=== PATIENT | female | born 2000 | race African-American/Black ===

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

== ENCOUNTER 2019-02-03 15:02 | Observation (INO) | payer BC ==
[2019-02-03 16:29] LABS: APPEARANCE,URINE SLIGHTLY-CLOUDY; BILIRUBIN,URINE NEGATIVE (NEGATIVE); COLOR,URINE YELLOW; GLUCOSE, URINE NEGATIVE (NEGATIVE); KETONES,URINE TRACE mg/dL (NEGATIVE); LEUKOCYTE ESTERASE,URINE TRACE (NEGATIVE); NITRITE,URINE NEGATIVE (NEGATIVE); PROTEIN,URINE 30 mg/dL (NEGATIVE); URINE SPECIFIC GRAVITY 1.025; UROBILINOGEN,URINE NEGATIVE mg/dL (<2.0)
[2019-02-03] MEDS ORDERED: OXYCODONE-ACETAMINOPHEN 5-325 MG TABLET PO ONE (16:32)
[2019-02-03] MEDS ORDERED: ONDANSETRON 4 MG TAB.RAPDIS PO ONE (16:32)
--- NOTE | 2019-02-03 16:43 | ER Document Report ---
ED General - General Chief Complaint: Pelvic Pain Stated Complaint: SIDE PAIN, BACK PAIN Time Seen by Provider: 02/03/19 16:12 Primary Care Provider: HAZEL RAMÍREZ MD [Primary Care Provider] - Follow up as needed Mode of Arrival: Ambulatory Information source: Patient TRAVEL OUTSIDE OF THE [place] IN LAST 30 DAYS: No - HPI Patient complains to provider of: Left flank, low back, pelvis pain Onset: Just prior to arrival Onset/Duration: Sudden Quality of pain: Sharp Severity: Severe Pain Level: 5 Associated symptoms: denies: Chills, Diarrhea, Fever, Nausea, Vomiting Exacerbated by: Denies Relieved by: Denies Similar symptoms previously: No Recently seen / treated by doctor: No Notes: 18-year-old female coming in today with chief complaint sudden onset left low back pain, left flank pain, left pelvic pain that started suddenly at work prior to arrival. No fevers or chills. No nausea vomiting or diarrhea. Pinkish vaginal discharge. States last menstrual period 1 to 1-1/2 weeks ago. - Related Data Allergies/Adverse Reactions: No Known Allergies Allergy (Verified 06/14/17 06:42) Past Medical History - General Information source: Patient Last Menstrual Period: 1-1.5 wks ago - Social History Smoking Status: Current Every Day Smoker Lives with: Spouse/Significant other Family History: Reviewed & Not Pertinent Renal/ Medical History: Denies: Hx Peritoneal Dialysis - Immunizations Immunizations up to date: Yes Hx Diphtheria, Pertussis, Tetanus Vaccination: Yes Review of Systems - Review of Systems Notes: Constitutional: No fevers. No chills. EENT: No eye redness. No eye pain. No ear pain. No sore throat. Cardiovascular: No chest pain. No palpitations. Respiratory: No cough. No shortness of breath. No respiratory distress. Gastrointestinal: No abdominal pain. No nausea, vomiting, or diarrhea. Genitourinary: Positive pelvic pain Musculoskeletal: Atraumatic. No swelling. No deformities. Skin: No rash or lesions. Lymphatic: No swollen lymph nodes. Neurologic: No headache. No syncope. Psychiatric: No suicidal or homicidal ideation. Physical Exam - Vital signs Vitals: Temp Pulse Resp BP Pulse Ox 98.3 F 79 16 134/84 H 100 02/03/19 15:43 02/03/19 15:43 02/03/19 15:43 02/03/19 15:43 02/03/19 15:43 - Notes Notes: General: Well-developed, well-nourished. In no acute distress. Non-toxic appearing. Cardiac: Well-perfused. Regular rate and rhythm. No murmurs, rubs, or gallops. Pulmonary: No respiratory distress. No cyanosis. Bilateral lung fiels are clear to auscultation. Abdominal: Positive suprapubic tenderness to palpation HEENT: Head is atraumatic. Conjunctivae not reddened. No tearing. PERRL. EOMI. Orbits atraumatic. No periorbital swelling or erythema. Oropharynx is without erythema, swelling, or exudates. Neck: Supple. No adenopathy. No meningismus. Dermatologic: Warm with good turgor. No rash. Atraumatic. Chest: Atraumatic. No chest wall tenderness to palpation. Musculoskeletal: Moves all extremities well. No range of motion deficits. no muscular or joint tenderness. No paraspinal muscle tenderness. no midline spinal tenderness or step-off. Genitourinary: Chaperoned by RN. Genitalia normal. Speculum exam reveals a closed cervix. Small amount of blood in the vault. No active red blood hemorrhage. Atraumatic appearance. Cultures obtained. No adnexal tenderness on bimanual. No cervical motion tenderness. Neurologic: No gross neurologic deficits. Psychiatric: Normal mood. Course - Re-evaluation Re-evalutation: 02/03/19 16:49 Patient is unaware that she is . She will need RhoGam work-up, will need pelvic ultrasound to rule out ectopic, will need quantitative hCG and basic lab work and urinalysis. 02/03/19 20:04 Patient's hCG is a little over 2500. Her ultrasound does not show an intrauterine thus far. There is a questionable suspicious area in the left adnexa. I discussed these findings with Dr. Bolaños who is on-call for obstetrics. She will review the scan and will call me back to see if she believes that this is a true ectopic or not. 02/03/19 20:48 Dr. Bolaños reviewed the images from the ultrasound and see with certainty identified a sac within the left adnexa thereby confirming her suspicions that this is a left sided ectopic . At the moment that we were talking, Dr. Bolaños was headed for an emergency . She did not feel that the patient was safe to go home. She requested that we keep the patient in the department until she can come and evaluate her after she completes her emergency surgery to determine what type of treatment she wants to offer the patient 02/03/19 22:[address] Bolaños after she was able to evaluate the patient. She agreed to admit the patient for observation to watch and make absolutely sure this was ectopic. She did not want to do anything to harm a viable . Apparentl y she will be putting in admission orders shortly. 02/03/19 22:42 - Vital Signs Vital signs: Temp Pulse Resp BP Pulse Ox 98.8 F 78 18 133/78 H 100 02/03/19 20:38 02/03/19 20:38 02/03/19 20:38 02/03/19 20:38 02/03/19 20:38 - Laboratory Result Diagrams: 02/03/19 16:50 02/03/19 16:50 Laboratory results interpreted by me: 02/03/19 02/03/19 02/03/19 16:05 16:50 19:25 Total Protein 8.3 H Beta HCG, Quant 2583.20 H Urine Protein 30 H Urine Ketones TRACE H Urine Blood MODERATE H Ur Leukocyte Esterase TRACE H Urine HCG, Qual POSITIVE H Chlamydia DNA (PCR) DETECTED H Discharge - Discharge Clinical Impression: Ectopic Qualifiers: Location of ectopic : unspecified location Intrauterine status: without intrauterine Qualified Code(s): O00.90 - Unspecified ectopic without intrauterine Condition: Stable Disposition: ADMITTED OBSERVATION Admitting Provider: [facility] Unit Admitted: Labor and Delivery Referrals: HAZEL RAMÍREZ MD [Primary Care Provider] - Follow up as needed
[2019-02-03 17:09] LABS: ABSOLUTE NEUT (AUTO) 6.8 10^3/uL (1.7-8.2); BASOPHILS % (AUTO) 0.4 % (0-2); SEGMENTED NEUTROPHILS % (AUTO) 73.5 % (42-78); TOTAL CELLS COUNTED % (AUTO) 100 %
[2019-02-03 17:16] LABS: ABSOLUTE LYMPHOCYTES (AUTO) 1.9 10^3/uL (0.5-4.7); ABSOLUTE MONOCYTES (AUTO) 0.5 10^3/uL (0.1-1.4); EOSINOPHILS % (AUTO) 0.5 % (0-6); HEMATOCRIT 41.2 % (36.0-47.0); HEMOGLOBIN 13.7 g/dL (12.0-15.5); LYMPHOCYTES % (AUTO) 20.3 % (13-45); MEAN CORPUSCULAR HEMOGLOBIN 31.6 pg (27.0-33.4); MEAN CORPUSCULAR HGB CONC 33.3 g/dL (32.0-36.0); MEAN CORPUSCULAR VOLUME 95 fl (80-97); MONOCYTES % (AUTO) 5.3 % (3-13); PLATELET COUNT 317 10^3/uL (150-450); RED BLOOD COUNT 4.34 10^6/uL (3.72-5.28); RED CELL DISTRIBUTION WIDTH 13.2 % (11.5-14.0); WHITE BLOOD COUNT 9.3 10^3/uL (4.0-10.5)
[2019-02-03 17:20] LABS: ALANINE AMINOTRANSFERASE 28 U/L (9-52); ALKALINE PHOSPHATASE 68 U/L (38-126); ANION GAP 9 (5-19); ASPARTATE AMINO TRANSFERASE 25 U/L (14-36); BILIRUBIN,DIRECT 0.2 mg/dL (0.0-0.4); BILIRUBIN,TOTAL 0.9 mg/dL (0.2-1.3); BLOOD UREA NITROGEN 9 mg/dL (7-20); CARBON DIOXIDE 30 mmol/L (22-30); CHLORIDE 101 mmol/L (98-107); GLUCOSE 79 mg/dL (75-110); POTASSIUM 3.9 mmol/L (3.6-5.0); SODIUM 139.7 mmol/L (137-145); TOTAL PROTEIN 8.3 g/dL (6.3-8.2)
--- NOTE | 2019-02-03 18:28 | RADIOLOGY REPORT (SQ) ---
EXAM DESCRIPTION: U/S OB TRANSVAG W/DOPPLER COMPLETED DATE/TIME: 02/03/2019 5:42 pm REASON FOR STUDY: flank, suprapubic, pelvic pain +hcg COMPARISON: None. TECHNIQUE: Transvaginal static and realtime grayscale images acquired of the pelvis. Additional cole cted spectral and color Doppler images recorded. All images stored on PACs. CLINICAL AGE: None stated BHCG: Not available. LIMITATIONS: None. FINDINGS: UTERUS: No visualized intrauterine . RIGHT ADNEXA: Normal ovary with normal vascular flow. No adnexal free fluid. No adnexal masses. LEFT ADNEXA: Normal ovary with normal vascular flow. No adnexal free fluid. 1.21 cm hyperechoic left adnexal lesion with central hypoechoic area. Peripheral vascular flow. FREE FLUID: Yes OTHER: No other significant finding. IMPRESSION: NO VISUALIZED INTRA- OR EXTRAUTERINE . bHCG LEVEL NOT AVAILABLE FOR CORRELATION WITH US FINDINGS. ECTOPIC CANNOT BE EXCLUDED. Possible ectopic in the left adnexum. FOLLOW-UP ULTRASOUND AND SERIAL BHCG LEVELS STRONGLY RECOMMENDED TO ACCURATELY ASSESS STATU S. TECHNICAL DOCUMENTATION: JOB ID: [id number] [employer]- All Rights Reserved Reading location - IP/workstation name: [email or web address]
[2019-02-03 20:09] LABS: T.VAGINALIS (WET MOUNT) NO TRICHOMONAS SEEN; WBCS (WET MOUNT) 1+ WBCS SEEN; YEAST (WET MOUNT) NO YEAST SEEN
[2019-02-03 20:10] LABS: BACTERIA (WET MOUNT) 3+ BACTERIA SEEN; RBCS (WET MOUNT) 4+ RBCS SEEN
[2019-02-03 22:09] LABS: CHLAM PCR DETECTED (NOT DETECT)
--- NOTE | 2019-02-03 23:33 | PDOC H&P ---
History of Present Illness Admission Date/PCP: 02/03/19 22:54 HAZEL RAMÍREZ MD Patient complains of: left adnexal pain, vaginal spotting History of Present Illness: ANTONIO COE is a 18 year old female at 2+1ega by known LMP 01/19/2019 that was normal for her. Prior menses was 12/24/2018. She reports this am was having severe pain and came in for evaluation - was 10/10 in left adnexa and lower pelvis. Now 3/10 pain. She did not known she was and reports that she is not a smoker and denies prior STD history. Past Medical History LMP: 01/19/2019 Menses: normal Gynecological Infection: No Past Surgical History Past Surgical History: Reports: Other - cyst on back removed Social History Information Source: Patient Lives with: Spouse/Significant other Smoking Status: Current Every Day Smoker Hx Recreational Drug Use: No Drugs: None Hx Prescription Drug Abuse: No Family History Family History: Reviewed & Not Pertinent Parental Family History Reviewed: No Children Family History Reviewed: NA Sibling(s) Family History Reviewed.: NA Medication/Allergy Home Medications: Cetirizine HCl [Zyrtec] 1 tab PO DAILY 06/14/17 Ciprofloxacin HCl [Cipro 500 mg Tablet] 500 mg PO BID #14 tablet 06/14/17 Metronidazole [Flagyl 500 mg Tablet] 500 mg PO Q6H #28 tablet 06/14/17 Allergies/Adverse Reactions: No Known Allergies Allergy (Verified 06/14/17 06:42) Physical Exam - Physical Exam Vital Signs: Temp Pulse Resp BP Pulse Ox 98.8 F 78 18 133/78 H 100 02/03/19 20:38 02/03/19 20:38 02/03/19 20:38 02/03/19 20:38 02/03/19 20:38 Intake & Output 02/02/19 02/03/19 02/04/19 06:59 06:59 06:59 Weight 62.5 kg General appearance: PRESENT: no acute distress, well-developed, well-nourished Respiratory exam: PRESENT: clear to auscultation yousif, symmetrical, unlabored Cardiovascular exam: PRESENT: RRR. ABSENT: diastolic murmur, rubs, systolic murmur Pulses: PRESENT: normal dorsalis pedis pul, +2 pedal pulses bilateral GI/Abdominal exam: PRESENT: normal bowel sounds, soft, tenderness - mildly ttp in lower pelvis, no rebound, no guarding, no rovsigs, no peritoneal signs. ABSENT: distended, guarding, mass, organolmegaly, rebound Rectal exam: PRESENT: deferred Extremities exam: PRESENT: full ROM. ABSENT: calf tenderness, clubbing, pedal edema Musculoskeletal exam: PRESENT: ambulatory Neurological exam: PRESENT: alert, awake, oriented to person, oriented to place, oriented to time, oriented to situation, CN II-XII grossly intact. ABSENT: motor sensory deficit Psychiatric exam: PRESENT: appropriate affect, normal mood. ABSENT: homicidal ideation, suicidal ideation Skin exam: PRESENT: dry, intact, warm. ABSENT: cyanosis, rash Result Laboratory Results: 02/03/19 16:50 02/03/19 16:50 02/03/19 02/03/19 02/03/19 16:05 16:50 16:50 WBC 9.3 RBC 4.34 Hgb 13.7 Hct 41.2 MCV 95 MCH 31.6 MCHC 33.3 RDW 13.2 Plt Count 317 Seg Neutrophils % 73.5 Lymphocytes % 20.3 Monocytes % 5.3 Eosinophils % 0.5 Basophils % 0.4 Absolute Neutrophils 6.8 Absolute Lymphocytes 1.9 Absolute Monocytes 0.5 Absolute Eosinophils 0.0 Absolute Basophils 0.0 Sodium 139.7 Potassium 3.9 Chloride 101 Carbon Dioxide 30 Anion Gap 9 BUN 9 Creatinine 0.66 Est GFR ( Amer) > 60 Est GFR (Non-Af Amer) > 60 Glucose 79 Calcium 10.0 Total Bilirubin 0.9 AST 25 ALT 28 Alkaline Phosphatase 68 Total Protein 8.3 H Albumin 5.0 Urine Color YELLOW Urine Appearance SLIGHTLY-CLOUDY Urine pH 6.0 Ur Specific [place] 1.025 Urine Protein 30 H Urine Glucose (UA) NEGATIVE Urine Ketones TRACE H Urine Blood MODERATE H Urine Nitrite NEGATIVE Ur Leukocyte Esterase TRACE H Urine WBC (Auto) 14 Urine RBC (Auto) 4 Blood Type 02/03/19 17:00 WBC RBC Hgb Hct MCV MCH MCHC RDW Plt Count Seg Neutrophils % Lymphocytes % Monocytes % Eosinophils % Basophils % Absolute Neutrophils Absolute Lymphocytes Absolute Monocytes Absolute Eosinophils Absolute Basophils Sodium Potassium Chloride Carbon Dioxide Anion Gap BUN Creatinine Est GFR ( Amer) Est GFR (Non-Af Amer) Glucose Calcium Total Bilirubin AST ALT Alkaline Phosphatase Total Protein Albumin Urine Color Urine Appearance Urine pH Ur Specific [place] Urine Protein Urine Glucose (UA) Urine Ketones Urine Blood Urine Nitrite Ur Leukocyte Esterase Urine WBC (Auto) Urine RBC (Auto) Blood Type O POSITIVE Impressions: Transvaginal US 02/03/19 16:46 IMPRESSION: NO VISUALIZED INTRA- OR EXTRAUTERINE . bHCG LEVEL NOT AVAILABLE FOR CORRELATION WITH US FINDINGS. ECTOPIC CANNOT BE EXCLUDED. Possible ectopic in the left adnexum. FOLLOW-UP ULTRASOUND AND SERIAL BHCG LEVELS STRONGLY RECOMMENDED TO ACCURATELY ASSESS STATUS. Status: Image reviewed by me Assessment & Plan - Diagnosis (1) of unknown anatomic location Is this a current diagnosis for this admission?: Yes Plan: Patient with benign abdominal exam at this time. VS and hemodynamically stable Labs and Ultrasound reviewed. BHCG 2583 per patients LMP would be 2+1ega and this is desired if intrauterine Hb/Hct wnl 13.7/41.2 Ultrasound reviewed by myself and concern for GS and possible YS and ectopic pre gnancy in left adnexa and radiologist also contacted who read US as suspected ectopic . Reviewed options with patient: surgery, MTX, observation as long as she is hemodynamically stable and repeat labs and US tomorrow and possibly again repeat labs on Friday. GC/CT requested in ER. (2) Chlamydia infection affecting Qualifiers: Trimester: first trimester Qualified Code(s): O98.811 - Other maternal infectious and parasitic diseases complicating , first trimester; A74.9 - Chlamydial infection, unspecified Is this a current diagnosis for this admission?: Yes Plan: Azithromycin ordered. Patient informed and reviewed need to have partner treated. No unprotected intercourse until 4 weeks with good CIRO. Chlamydia dx could be a component of pain that patient is experiencing and certainly could contribute to cause of ectopic if that is final diagnosis. Will also treat for PID: Mefoxitin 2g Q 6 and Doxy 100mg Q12 - Time Time Spent: 30 to 50 Minutes Critical Time spent with patient: Less than 15 minutes Medications reviewed and adjusted accordingly: Yes Anticipated discharge: Home Within: within 48 hours Disposition: to floor from ER - Inpatient Certification Based on my medical assessment, after consideration of the patient's comor bidities, presenting symptoms, or acuity I expect that the services needed warrant INPATIENT care.: Yes I certify that my determination is in accordance with my understanding of Medicare's requirements for reasonable and necessary INPATIENT services [42 CFR 412.3e].: Yes Medical Necessity: Need Close Monitoring Due to Risk of Patient Decompensation, Need for Pain Control
[2019-02-04] MEDS ORDERED: DOXYCYCLINE HYCLATE INJ 100 MG VIAL IV PRN (00:15)
[2019-02-04] MEDS ORDERED: CEFOXITIN INJ 1 GM VIAL IV PRN (00:15)
[2019-02-04] MEDS ORDERED: AZITHROMYCIN 1 GM SUSP PACKET PO ONE (00:15)
[2019-02-04] MEDS ORDERED: CEFOXITIN SODIUM 2 GM in DEXTROSE 5%-WATER 100 ML IV ONE (00:30)
[2019-02-04] MEDS ORDERED: CEFOXITIN INJ 1 GM VIAL ONE ×2 (00:46→01:08)
[2019-02-04] MEDS ORDERED: DOXYCYCLINE HYCLATE INJ 100 MG VIAL ONE (00:47)
[2019-02-04] MEDS ORDERED: AZITHROMYCIN 1 GM SUSP PACKET ONE (00:48)
[2019-02-04] MEDS ORDERED: DOXYCYCLINE HYCLATE 100 MG in DEXTROSE 5%-WATER 250 ML IV ONE (01:00)
[2019-02-04] MEDS: CEFOXITIN SODIUM 2 GM in DEXTROSE 5%-WATER 100 ML IV SCH ×2 (05:26→13:04)
[2019-02-04 07:06] LABS: ABSOLUTE BASOPHILS # (AUTO) 0.1 10^3/uL (0.0-0.2); ABSOLUTE EOSINOPHILS # (AUTO) 0.1 10^3/uL (0.0-0.6); ABSOLUTE LYMPHOCYTES (AUTO) 1.6 10^3/uL (0.5-4.7); ABSOLUTE MONOCYTES (AUTO) 0.7 10^3/uL (0.1-1.4); ABSOLUTE NEUT (AUTO) 4.9 10^3/uL (1.7-8.2); EOSINOPHILS % (AUTO) 1.5 % (0-6); HEMATOCRIT 38.1 % (36.0-47.0); HEMOGLOBIN 12.9 g/dL (12.0-15.5); LYMPHOCYTES % (AUTO) 22.3 % (13-45); MEAN CORPUSCULAR HGB CONC 33.8 g/dL (32.0-36.0); MEAN CORPUSCULAR VOLUME 95 fl (80-97); PLATELET COUNT 276 10^3/uL (150-450); RED BLOOD COUNT 4.02 10^6/uL (3.72-5.28); RED CELL DISTRIBUTION WIDTH 13.1 % (11.5-14.0); SEGMENTED NEUTROPHILS % (AUTO) 66.2 % (42-78); TOTAL CELLS COUNTED % (AUTO) 100 %; WHITE BLOOD COUNT 7.4 10^3/uL (4.0-10.5)
[2019-02-04 07:31] LABS: ALANINE AMINOTRANSFERASE 20 U/L (9-52); ALBUMIN 4.2 g/dL (3.5-5.0); ALKALINE PHOSPHATASE 64 U/L (38-126); ANION GAP 12 (5-19); ASPARTATE AMINO TRANSFERASE 25 U/L (14-36); BLOOD UREA NITROGEN 7 mg/dL (7-20); CALCIUM 9.7 mg/dL (8.4-10.2); CARBON DIOXIDE 22 mmol/L (22-30); CHLORIDE 104 mmol/L (98-107); SODIUM 137.9 mmol/L (137-145); TOTAL PROTEIN 7.2 g/dL (6.3-8.2)
[2019-02-04 07:35] LABS: GLUCOSE 119 mg/dL (75-110)
[2019-02-04 08:07] LABS: BILIRUBIN,DIRECT 0.4 mg/dL (0.0-0.4); BILIRUBIN,TOTAL 0.8 mg/dL (0.2-1.3)
[2019-02-04] MEDS ORDERED: DOXYCYCLINE HYCLATE 100 MG in DEXTROSE 5%-WATER 250 ML IV SCH (10:00)
--- NOTE | 2019-02-04 13:48 | PDOC PROGRESS REPORT ---
Subjective Progress Note for:: 02/04/19 Subjective:: pt having knee pain no abd pain Reason For Visit: UNKNOWN LOCATION OF Physical Exam - Physical Exam Vital Signs: Temp Pulse Resp BP Pulse Ox 97.5 F 89 16 126/78 H 99 02/04/19 03:11 02/04/19 03:11 02/04/19 03:11 02/04/19 03:11 02/04/19 03:11 Intake & Output 02/03/19 02/04/19 02/05/19 06:59 06:59 06:59 Intake Total 100 Balance 100 Weight 62.5 kg General appearance: PRESENT: no acute distress Respiratory exam: PRESENT: clear to auscultation yousif Cardiovascular exam: PRESENT: RRR GI/Abdominal exam: PRESENT: soft Result Laboratory Results: 02/04/19 06:29 02/04/19 06:29 02/03/19 02/03/19 02/03/19 16:05 16:50 16:50 WBC 9.3 RBC 4.34 Hgb 13.7 Hct 41.2 MCV 95 MCH 31.6 MCHC 33.3 RDW 13.2 Plt Count 317 Seg Neutrophils % 73.5 Lymphocytes % 20.3 Monocytes % 5.3 Eosinophils % 0.5 Basophils % 0.4 Absolute Neutrophils 6.8 Absolute Lymphocytes 1.9 Absolute Monocytes 0.5 Absolute Eosinophils 0.0 Absolute Basophils 0.0 Sodium 139.7 Potassium 3.9 Chloride 101 Carbon Dioxide 30 Anion Gap 9 BUN 9 Creatinine 0.66 Est GFR ( Amer) > 60 Est GFR (Non-Af Amer) > 60 Glucose 79 Calcium 10.0 Total Bilirubin 0.9 AST 25 ALT 28 Alkaline Phosphatase 68 Total Protein 8.3 H Albumin 5.0 Urine Color YELLOW Urine Appearance SLIGHTLY-CLOUDY Urine pH 6.0 Ur Specific [place] 1.025 Urine Protein 30 H Urine Glucose (UA) NEGATIVE Urine Ketones TRACE H Urine Blood MODERATE H Urine Nitrite NEGATIVE Ur Leukocyte Esterase TRACE H Urine WBC (Auto) 14 Urine RBC (Auto) 4 Blood Type 02/03/19 02/04/19 02/04/19 17:00 06:29 06:29 WBC 7.4 RBC 4.02 Hgb 12.9 Hct 38.1 MCV 95 MCH 32.0 MCHC 33.8 RDW 13.1 Plt Count 276 Seg Neutrophils % 66.2 Lymphocytes % 22.3 Monocytes % 9.0 Eosinophils % 1.5 Basophils % 1.0 Absolute Neutrophils 4.9 Absolute Lymphocytes 1.6 Absolute Monocytes 0.7 Absolute Eosinophils 0.1 Absolute Basophils 0.1 Sodium 137.9 Potassium 4.0 Chloride 104 Carbon Dioxide 22 Anion Gap 12 BUN 7 Creatinine 0.54 Est GFR ( Amer) > 60 Est GFR (Non-Af Amer) > 60 Glucose 119 H Calcium 9.7 Total Bilirubin 0.8 AST 25 ALT 20 Alkaline Phosphatase 64 Total Protein 7.2 Albumin 4.2 Urine Color Urine Appearance Urine pH Ur Specific [place] Urine Protein Urine Glucose (UA) Urine Ketones Urine Blood Urine Nitrite Ur Leukocyte Esterase Urine WBC (Auto) Urine RBC (Auto) Blood Type O POSITIVE Impressions: Transvaginal US 02/03/19 16:46 IMPRESSION: NO VISUALIZED INTRA- OR EXTRAUTERINE . bHCG LEVEL NOT AVAILABLE FOR CORRELATION WITH US FINDINGS. ECTOPIC CANNOT BE EXCLUDED. Possible ectopic in the left adnexum. FOLLOW-UP ULTRASOUND AND SERIAL BHCG LEVELS STRONGLY RECOMMENDED TO ACCURATELY ASSESS STATUS. Assessment & Plan - Diagnosis (1) Chlamydia infection affecting Qualifiers: Trimester: first trimester Qualified Code(s): O98.811 - Other maternal infectious and parasitic diseases complicating , first trimester; A74.9 - Chlamydial infection, unspecified Is this a current diagnosis for this admission?: Yes (2) of unknown anatomic location Is this a current diagnosis for this admission?: Yes Plan: bHCG has decreased discussed with pt and informed this is not a normal pregnncy but unknown if it is IU or ectopic I offered methotrexate and close observation pt wants medication and will follow as needed - Plan Summary Plan Summary: methorexate and f/u as needed or friday in offfice
--- NOTE | 2019-02-04 13:52 | PDOC DISCHARGE SUMMARY ---
General - Admit/Disc Date/PCP Admission Date/Primary Care Provider: 02/03/19 22:54 HAZEL RAMÍREZ MD Discharge Date: 02/04/19 - Discharge Diagnosis (1) Chlamydia infection affecting Is this a current diagnosis for this admission?: Yes (2) of unknown anatomic location Is this a current diagnosis for this admission?: Yes - Additional Information Resuscitation Status: Full Code Home Medications: No Home Medications 02/04/19 History of Present Illness Patient complains of: pt admitted with pos HCG and unknow location of History of Present Illness: ANTONIO COE is a 18 year old female Hospital Course Hospital Course: decreasing HCG and pos chlamydia pt given methotrexate and follow as appropriate Physical Exam - Physical Exam Vital Signs: Temp Pulse Resp BP Pulse Ox 97.5 F 89 16 126/78 H 99 02/04/19 03:11 02/04/19 03:11 02/04/19 03:11 02/04/19 03:11 02/04/19 03:11 Intake & Output 02/03/19 02/04/19 02/05/19 06:59 06:59 06:59 Intake Total 100 Balance 100 Weight 62.5 kg Result Laboratory Results: 02/04/19 06:29 02/04/19 06:29 02/03/19 02/03/19 02/03/19 16:05 16:50 16:50 WBC 9.3 RBC 4.34 Hgb 13.7 Hct 41.2 MCV 95 MCH 31.6 MCHC 33.3 RDW 13.2 Plt Count 317 Seg Neutrophils % 73.5 Lymphocytes % 20.3 Monocytes % 5.3 Eosinophils % 0.5 Basophils % 0.4 Absolute Neutrophils 6.8 Absolute Lymphocytes 1.9 Absolute Monocytes 0.5 Absolute Eosinophils 0.0 Absolute Basophils 0.0 Sodium 139.7 Potassium 3.9 Chloride 101 Carbon Dioxide 30 Anion Gap 9 BUN 9 Creatinine 0.66 Est GFR ( Amer) > 60 Est GFR (Non-Af Amer) > 60 Glucose 79 Calcium 10.0 Total Bilirubin 0.9 AST 25 ALT 28 Alkaline Phosphatase 68 Total Protein 8.3 H Albumin 5.0 Urine Color YELLOW Urine Appearance SLIGHTLY-CLOUDY Urine pH 6.0 Ur Specific [place] 1.025 Urine Protein 30 H Urine Glucose (UA) NEGATIVE Urine Ketones TRACE H Urine Blood MODERATE H Urine Nitrite NEGATIVE Ur Leukocyte Esterase TRACE H Urine WBC (Auto) 14 Urine RBC (Auto) 4 Blood Type 02/03/19 02/04/19 02/04/19 17:00 06:29 06:29 WBC 7.4 RBC 4.02 Hgb 12.9 Hct 38.1 MCV 95 MCH 32.0 MCHC 33.8 RDW 13.1 Plt Count 276 Seg Neutrophils % 66.2 Lymphocytes % 22.3 Monocytes % 9.0 Eosinophils % 1.5 Basophils % 1.0 Absolute Neutrophils 4.9 Absolute Lymphocytes 1.6 Absolute Monocytes 0.7 Absolute Eosinophils 0.1 Absolute Basophils 0.1 Sodium 137.9 Potassium 4.0 Chloride 104 Carbon Dioxide 22 Anion Gap 12 BUN 7 Creatinine 0.54 Est GFR ( Amer) > 60 Est GFR (Non-Af Amer) > 60 Glucose 119 H Calcium 9.7 Total Bilirubin 0.8 AST 25 ALT 20 Alkaline Phosphatase 64 Total Protein 7.2 Albumin 4.2 Urine Color Urine Appearance Urine pH Ur Specific [place] Urine Protein Urine Glucose (UA) Urine Ketones Urine Blood Urine Nitrite Ur Leukocyte Esterase Urine WBC (Auto) Urine RBC (Auto) Blood Type O POSITIVE Impressions: Transvaginal US 02/03/19 16:46 IMPRESSION: NO VISUALIZED INTRA- OR EXTRAUTERINE . bHCG LEVEL NOT AVAILABLE FOR CORRELATION WITH US FINDINGS. ECTOPIC CANNOT BE EXCLUDED. Possible ectopic in the left adnexum. FOLLOW-UP ULTRASOUND AND SERIAL BHCG LEVELS STRONGLY RECOMMENDED TO ACCURATELY ASSESS STATUS. Plan Discharge Plan: d/c f/u friday Acute Heart Failure - Is this a Heart Failure Patient?: No
[2019-02-04] MEDS ORDERED: METHOTREXATE SODIUM IM ONE (15:15)
[2019-02-04] MEDS ORDERED: DISPOSABLE IM ONE (15:15)
[2019-02-04 16:14] VITALS: BP 146/88
== END 2019-02-04 16:10 | disposition home or self-care (01) ==
LOC: ER 15:02 → EH 22:54 → 2S 02-04 00:07
PROVIDERS: ADMIT Student in an Organized Health Care Education/Training Program; ATTEND Student in an Organized Health Care Education/Training Program
DX: O98.811 Other maternal infectious and parasitic diseases complicating pregnancy, first trimester (principal); A74.9 Chlamydial infection, unspecified
CPT/HCPCS: 36415; 76817; 80053; 81001; 81025; 84702; 85025; 86900; 86901; 87210; 87491; 87591; 93976; 99285; G0378; J0694; J3490; J7060; J9260; Q0144; S0119

== ENCOUNTER → 2019-02-08 | Outpatient (CLI) | payer BC | LOC: OD 10:43 | PROVIDERS: ATTEND Obstetrics & Gynecology Gynecology | DX: O00.91 Unspecified ectopic pregnancy with intrauterine pregnancy (principal) | CPT/HCPCS: 36415; 84702 ==

== ENCOUNTER → 2019-02-15 | Outpatient (CLI) | payer BC | LOC: OD 09:24 | PROVIDERS: ATTEND Obstetrics & Gynecology Gynecology | DX: O00.91 Unspecified ectopic pregnancy with intrauterine pregnancy (principal) | CPT/HCPCS: 36415; 84702 ==

== ENCOUNTER → 2020-08-29 | Outpatient (CLI) | payer BC ==
--- NOTE | 2020-08-29 10:47 | RADIOLOGY REPORT (SQ) ---
EXAM DESCRIPTION: L SPINE WHOLE IMAGES COMPLETED DATE/TIME: 08/29/2020 10:05 am REASON FOR STUDY: (M54.32)SCIATICA, LEFT SIDE(M54.31)SCIATICA, RIGHT SIDE M54.31 SCIATICA, RIGHT SI DE M54.32 SCIATICA, LEFT SIDE COMPARISON: None. NUMBER OF VIEWS: Five views including obliques. TECHNIQUE: AP, lateral, oblique, and sacral radiographic images acquired of the lumbar spine. LIMITATIONS: None. FINDINGS: MINERALIZATION: Normal. SEGMENTATION: Normal. No transitional anatomy. ALIGNMENT: Slight levoconvex scoliosis. VERTEBRAE: Maintained height. No fracture or worrisome bone lesion. DISCS: Preserved height. No significant osteophytes or end plate irregularity. POSTERIOR ELEMENTS: Pedicles and facets are intact. No pars defect or posterior arch defects. HARDWARE: None in the spine. PARASPINAL SOFT TISSUES: Normal. PELVIS: Intact as visualized. No fractures or worrisome bone lesions. SI joints intact. OTHER: No other significant finding. IMPRESSION: 1. Slight levoconvex scoliosis. No acute osseous findings. TECHNICAL DOCUMENTATION: JOB ID: [id number] [employer]- All Rights Reserved Reading location - IP/workstation name: [id number]
== END ==
LOC: RAD 09:52
PROVIDERS: ATTEND Physician Assistant
DX: M54.31 Sciatica, right side (principal); M54.32 Sciatica, left side
CPT/HCPCS: 72110